=== PATIENT | male | born 1960 | race Caucasian/White ===

== ENCOUNTER 2016-04-23 11:22 | Day surgery (SDC) | END 2016-04-23 14:45 | disposition home or self-care (01) | DX: Z12.11 Encounter for screening for malignant neoplasm of colon (principal); K44.9 Diaphragmatic hernia without obstruction or gangrene; K29.30 Chronic superficial gastritis without bleeding; K63.5 Polyp of colon | CPT/HCPCS: 43239; 45380; 88305; 88312; J2250; J3010; Z7610 ==